=== PATIENT | male | born 1975 | race African-American/Black ===

== ENCOUNTER 2016-07-08 16:58 | Emergency (ER) | payer MEDICARE, MEDICAID ==
[2016-07-08 17:09] VITALS: BP 119/72
--- NOTE | 2016-07-08 17:33 | ER Document Report ---
ED Medical Screen (RME) - General Stated Complaint: LEFT SHOULDER PAIN Time seen by provider: 17:31 Mode of Arrival: Ambulatory Information source: Patient Notes: 41-year-old male presents to ED for left shoulder pain since a week ago. States he was seen in the emergency room on Tuesday and had x-ray done at that time. States she's had pain with this shoulder since 2006 but has recently reinjured it a week ago. I have greeted and performed a rapid initial assessment of this patient. A comprehensive ED assessment and evaluation of the patient, analysis of test results and completion of medical decision making process will be conducted by an additional ED providers. TRAVEL OUTSIDE OF THE [place] IN LAST 30 DAYS: No - Related Data Allergies/Adverse Reactions: cyclobenzaprine HCl [From Flexeril] Allergy (Verified 05/07/13 16:52) ibuprofen [From Motrin] Allergy (Verified 05/07/13 16:52) tramadol [Tramadol] Allergy (Verified 05/07/13 16:52) trazodone [Trazodone] Allergy (Verified 05/07/13 16:52) Past Medical History - Past Medical History Cardiac Medical History: Reports: Hx Hypertension Pulmonary Medical History: Reports: Hx Asthma Neurological Medical History: Reports: Hx Migraine, Hx Seizures - 2001 Endocrine Medical History: Reports: Hx Diabetes Mellitus Type 2 Renal/ Medical History: Denies: Hx Peritoneal Dialysis Psychiatric Medical History: Reports: Hx Bipolar Disorder, Hx Schizophrenia - Immunizations Immunizations up to date: Yes Hx Diphtheria, Pertussis, Tetanus Vaccination: Yes Physical Exam - Vital signs Vitals: Temp Pulse Resp BP Pulse Ox 98.3 F 91 16 119/72 99 07/08/16 17:08 07/08/16 17:08 07/08/16 17:08 07/08/16 17:08 07/08/16 17:08 Course - Vital Signs Vital signs: Temp Pulse Resp BP Pulse Ox 98.3 F 91 16 119/72 99 07/08/16 17:08 07/08/16 17:08 07/08/16 17:08 07/08/16 17:08 07/08/16 17:08
[2016-07-08] MEDS ORDERED: OXYCODONE-ACETAMINOPHEN 5-325 MG TABLET PO ONE (18:31)
--- NOTE | 2016-07-08 18:41 | ER Document Report ---
HPI - HPI Patient complains to provider of: left shoulder pain Onset: Last week Onset/Duration: Persistent Quality of pain: Sharp Pain Level: 4 Context: Patient states that he has a history of chronic left shoulder pain after a fall 10 years ago. Patient states he previously had seen an orthopedic doctor 10 years ago was diagnosed with terminal nerve damage. Patient states that a week ago he was lifting an 18 reddy on a pau and the pau slipped. Patient states that he attempted to lift a drive shaft that aggravated his left shoulder pain. Patient complains of left shoulder pain but points to the left trapezius area. Patient reports that he was here recently and was given a muscle relaxant that has not helped his symptoms. Patient has an appointment early next week with his primary doctor for further evaluation. Patient states he did take his family members Percocet that did seem to help her symptoms. Associated Symptoms: Other - Left shoulder pain Exacerbated by: Movement Relieved by: Denies Similar symptoms previously: Yes Recently seen / treated by doctor: Yes - ROS ROS below otherwise negative: Yes Systems Reviewed and Negative: Yes All other systems reviewed and negative - CONSTITUTIONAL Constitutional: DENIES: Fever, Chills - CARDIOVASCULAR Cardiovascular: DENIES: Chest pain - RESPIRATORY Respiratory: DENIES: Trouble Breathing, Coughing - REPRODUCTIVE Reproductive: DENIES: : - MUSCULOSKELETAL Musculoskeletal: REPORTS: Extremity pain, Back Pain. DENIES: Neck Pain - DERM Skin Color: Normal Skin Problems: None Past Medical History - General Information source: Patient - Social History Smoking Status: Never Smoker Chew tobacco use (# tins/day): No Frequency of alcohol use: None Drug Abuse: None Occupation: none Lives with: Family Family History: Reviewed & Not Pertinent Patient has suicidal ideation: No Patient has homicidal ideation: No Pulmonary Medical History: Reports: Hx Asthma Neurological Medical History: Reports: Hx Migraine, Hx Seizures - 2001 Endocrine Medical History: Reports: Hx Diabetes Mellitus Type 2 Renal/ Medical History: Denies: Hx Peritoneal Dialysis Psychiatric Medical History: Reports: Hx Bipolar Disorder, Hx Schizophrenia Surgical Hx: Negative - Immunizations Immunizations up to date: Yes Hx Diphtheria, Pertussis, Tetanus Vaccination: Yes Vertical Provider Document - CONSTITUTIONAL Agree With Documented VS: Yes Exam Limitations: No Limitations General Appearance: WD/WN, No Apparent Distress - INFECTION CONTROL TRAVEL OUTSIDE OF THE [place] IN LAST 30 DAYS: No - HEENT HEENT: Atraumatic, Normocephalic - NECK Neck: Other - Left trapezius muscle tenderness and spasm, pain increases with extension or abduction of left shoulder.. negative: Lymphadenopathy-Left, Lymphadenopathy-Right - RESPIRATORY Respiratory: Breath Sounds Normal, No Respiratory Distress, Chest Non-Tender O2 Sat by Pulse Oximetry: 99 - CARDIOVASCULAR Cardiovascular: Regular Rate, Regular Rhythm, No Murmur Pulses: Normal: Radial - BACK Back: Abnormal Inspection - Left trapezius muscle tenderness and spasm. negative: CVA Tenderness-Right, CVA Tenderness-Left - MUSCULOSKELETAL/EXTREMETIES Musculoskeletal/Extremeties: MAEW, Tender - Decreased range of motion to left shoulder due to increased pain to left trapezius muscle. - NEURO Level of Consciousness: Awake, Alert, Appropriate Motor/Sensory: No Motor Deficit, No Sensory Deficit Notes: Normal strength and muscle tone to left upper extremity - DERM Integumentary: Warm, Dry, No Rash Course - Re-evaluation Re-evalutation: 07/08/16 18:[address] Dent regarding patient presentation and management. Agrees with plan to manage symptomatically and have patient follow-up with orthopedic doctor. Discussed plan of care with patient, patient verbalized understanding and agrees. Patient encouraged to continue range of motion activities to left shoulder to prevent any long-term loss of mobility or function - Vital Signs Vital signs: Temp Pulse Resp BP Pulse Ox 98.3 F 91 16 119/72 99 07/08/16 17:08 07/08/16 17:08 07/08/16 17:08 07/08/16 17:08 07/08/16 17:08 - Diagnostic Test Radiology reviewed: Reports reviewed - Reviewed the radiology report from previous ER visit Discharge - Discharge Clinical Impression: Trapezius muscle spasm, Muscle strain Condition: Stable Disposition: HOME, SELF-CARE Instructions: Muscle Strain ([facility]), Warm Packs ([facility]), Oral Narcotic Medication ( [facility]) Additional Instructions: Return immediately for any new or worsening symptoms Followup with your primary care provider, call tomorrow to make a followup appointment Follow up with orthopedic Dr. for further evaluation, call tomorrow for an appointment You may use [id number] Lidoderm patches (ex: salonpas lidocaine patches) Practice gentle range of motion activities to left upper extremity Prescriptions: Oxycodone HCl/Acetaminophen [Percocet 5-325 mg Tablet] 1 tab PO ASDIR PRN #15 tablet PRN Reason: Referrals: KISHOR OLIVA DO [Primary Care Provider] - Follow up tomorrow [facility] [Provider Group] - Follow up tomorrow
== END 2016-07-08 18:56 | disposition home or self-care (01) ==
LOC: ER 16:58
DX: S46.912A Strain of unspecified muscle, fascia and tendon at shoulder and upper arm level, left arm, initial encounter (principal); M25.512 Pain in left shoulder; M62.838 Other muscle spasm; E11.9 Type 2 diabetes mellitus without complications; X50.0XXA Overexertion from strenuous movement or load, initial encounter
CPT/HCPCS: 99283; A9270

== ENCOUNTER 2016-07-16 23:16 | Emergency (ER) | payer MEDICARE, MEDICAID ==
--- NOTE | 2016-07-17 00:36 | ER Document Report ---
ED Medical Screen (RME) - General Stated Complaint: LEFT SHOULDER PAIN Notes: 41 year old male with ongoing pain in his left shoulder, had an MRI 2 weeks ago reportedly, has a follow up with Orthopedics next Month ([facility]), states they told him to come here for pain. Had re-injury to old injury 2 weeks ago. States he is awaiting a nerve test before any surgical plans. TRAVEL OUTSIDE OF THE [place] IN LAST 30 DAYS: No - Related Data Allergies/Adverse Reactions: cyclobenzaprine HCl [From Flexeril] Allergy (Verified 07/08/16 17:32) ibuprofen [From Motrin] Allergy (Verified 07/08/16 17:32) tramadol [Tramadol] Allergy (Verified 07/08/16 17:32) trazodone [Trazodone] Allergy (Verified 07/08/16 17:32) Past Medical History - Past Medical History Cardiac Medical History: Reports: Hx Hypertension Pulmonary Medical History: Reports: Hx Asthma Neurological Medical History: Reports: Hx Migraine, Hx Seizures - 2001 Endocrine Medical History: Reports: Hx Diabetes Mellitus Type 2 Renal/ Medical History: Denies: Hx Peritoneal Dialysis Psychiatric Medical History: Reports: Hx Bipolar Disorder, Hx Schizophrenia - Immunizations Immunizations up to date: Yes Hx Diphtheria, Pertussis, Tetanus Vaccination: Yes Physical Exam - Vital signs Vitals: Temp Pulse Resp BP Pulse Ox 98.1 F 92 20 128/75 H 99 07/16/16 23:21 07/16/16 23:21 07/16/16 23:21 07/16/16 23:21 07/16/16 23:21 - General General appearance: Appears well In distress: None Course - Vital Signs Vital signs: Temp Pulse Resp BP Pulse Ox 98.1 F 92 20 128/75 H 99 07/16/16 23:21 07/16/16 23:21 07/16/16 23:21 07/16/16 23:21 07/16/16 23:21
--- NOTE | 2016-07-17 01:40 | ER Document Report ---
HPI - HPI Patient complains to provider of: left shoulder pain Pain Level: 4 Context: Patient is a 41 year old male with ongoing pain in his left shoulder, had an MRI 2 weeks ago reportedly, has a follow up with Orthopedics next Month ([facility]), states they told him to come here for pain. Had re- injury to old injury about 2 weeks ago. States he is awaiting a nerve test before any surgical plans. - REPRODUCTIVE Reproductive: DENIES: : - DERM Skin Color: Normal Past Medical History - General Information source: Patient - Social History Smoking Status: Current Every Day Smoker Chew tobacco use (# tins/day): No Frequency of alcohol use: None Drug Abuse: None Family History: Reviewed & Not Pertinent Patient has suicidal ideation: No Patient has homicidal ideation: No - Past Medical History Cardiac Medical History: Reports: Hx Hypertension Pulmonary Medical History: Reports: Hx Asthma Neurological Medical History: Reports: Hx Migraine, Hx Seizures - 2001 Endocrine Medical History: Reports: Hx Diabetes Mellitus Type 2 Renal/ Medical History: Denies: Hx Peritoneal Dialysis Psychiatric Medical History: Reports: Hx Bipolar Disorder, Hx Schizophrenia - Immunizations Immunizations up to date: Yes Hx Diphtheria, Pertussis, Tetanus Vaccination: Yes Vertical Provider Document - CONSTITUTIONAL General Appearance: WD/WN, No Apparent Distress - INFECTION CONTROL TRAVEL OUTSIDE OF THE [place] IN LAST 30 DAYS: No - HEENT HEENT: Atraumatic, Normal ENT Exam, Normocephalic - NECK Neck: Normal Inspection - RESPIRATORY Respiratory: Breath Sounds Normal, No Respiratory Distress O2 Sat by Pulse Oximetry: 99 - CARDIOVASCULAR Cardiovascular: Regular Rate, Regular Rhythm - GI/ABDOMEN Gastrointestinal: Abdomen Soft, Abdomen Non-Tender - BACK Back: Normal Inspection - MUSCULOSKELETAL/EXTREMETIES Musculoskeletal/Extremeties: Tender - Patient complains regardless of where I touch his left shoulder whether it be over the proximal humerus, over the posterior or anterior aspect. No swelling, no abnormal erythema, patient can move the arm but does so reluctantly. Normal distal strength and sensation. Normal neck examination. - NEURO Level of Consciousness: Awake, Alert Motor/Sensory: No Motor Deficit, No Sensory Deficit - DERM Integumentary: Warm, Dry, No Rash Course - Re-evaluation Re-evalutation: Patient has been to the emergency department multiple times for the same shoulder, he has chronic shoulder pain, no new injuries, patient is well- appearing, no concerning abnormalities noted on examination. I did agree to give patient a dose of pain medication tonight, however after informed him that the emergency department does not treat chronic pain conditions, referred him to pain management, instructed him to follow-up with orthopedics as planned for additional management. I did offer him a sling which he wanted. Advised him to return for any concerning symptoms such as swelling, numbness, etc. Patient states understanding. - Vital Signs Vital signs: Temp Pulse Resp BP Pulse Ox 98.1 F 92 20 128/75 H 99 07/16/16 23:21 07/16/16 23:21 07/16/16 23:21 07/16/16 23:21 07/16/16 23:21 Procedures - Immobilization left shoulder Pre-Proc Neuro Vasc Exam: Normal Immobilizer type: Sling Performed by: RN Post-Proc Neuro Vasc Exam: Normal Alignment checked and good: Yes Discharge - Discharge Clinical Impression: Chronic left shoulder pain Condition: Stable Disposition: HOME, SELF-CARE Additional Instructions: Wear the sling for comfort if needed, remember to take your shoulder out several times a day to perform range of motion movements to avoid getting a frozen shoulder. Follow-up with pain management referral for additional treatments. Follow-up with orthopedics for additional management. Return to the emergency department for concerning symptoms including swelling to the area, loss of sensation, fever, or any other concerning symptoms. Referrals: [facility] [Provider Group] - Follow up as needed
[2016-07-17] MEDS ORDERED: OXYCODONE-ACETAMINOPHEN 5-325 MG TABLET PO ONE (01:53)
[2016-07-17] MEDS ORDERED: HYDROCODONE/ACETAMINOPHEN 5-325 MG 6 TAB/DSPK PO PRN (01:54)
[2016-07-17 02:15] VITALS: BP 141/78
== END 2016-07-17 02:12 | disposition home or self-care (01) ==
LOC: ER 23:16
DX: M25.512 Pain in left shoulder (principal); F17.200 Nicotine dependence, unspecified, uncomplicated; G89.29 Other chronic pain
CPT/HCPCS: 99283; A9270 ×2

== ENCOUNTER 2016-07-24 17:29 | Emergency (ER) | payer MEDICARE, MEDICAID ==
[2016-07-24 17:34] VITALS: BP 134/76
--- NOTE | 2016-07-24 18:25 | ER Document Report ---
ED Extremity Problem, Lower - General Chief Complaint: Leg Injury Stated Complaint: RIGHT LEG INJURY Time seen by provider: 18:22 Mode of Arrival: Wheelchair Information source: Patient Notes: 41-year-old male presents to ED for right hip and leg pain after playing football with his family. He states he fell while playing football. TRAVEL OUTSIDE OF THE [place] IN LAST 30 DAYS: No - HPI Patient complains to provider of: Injury, Pain Location: Hip Occurred: Just prior to arrival Where: Home, Outdoors, Sports Onset/Duration: Sudden Quality of pain: Sharp Severity: Severe Context: Fell Recent injury: Possibly Associated symptoms: Painful ambulation Exacerbated by: Hanging down, Movement, Walking Relieved by: Elevation, Ice, Rest - Related Data Allergies/Adverse Reactions: cyclobenzaprine HCl [From Flexeril] Allergy (Verified 07/24/16 17:32) ibuprofen [From Motrin] Allergy (Verified 07/24/16 17:32) tramadol [Tramadol] Allergy (Verified 07/24/16 17:32) trazodone [Trazodone] Allergy (Verified 07/24/16 17:32) Past Medical History - General Information source: Patient - Social History Smoking Status: Current Every Day Smoker Cigarette use (# per day): Yes - half pack per day Chew tobacco use (# tins/day): Yes Smoking Education Provided: Yes - less than 2 minutes Frequency of alcohol use: None Drug Abuse: None Occupation: none Lives with: Friend Family History: Arthritis, CAD, CVA, DM, Hyperlipidemia, Hypertension Patient has suicidal ideation: No Patient has homicidal ideation: No - Past Medical History Cardiac Medical History: Reports: Hx Hypertension Pulmonary Medical History: Reports: Hx Asthma Neurological Medical History: Reports: Hx Migraine, Hx Seizures - 2001 Endocrine Medical History: Reports: Hx Diabetes Mellitus Type 2 Renal/ Medical History: Reports: None Malignancy Medical History: Reports None GI Medical History: Reports: None Musculoskeltal Medical History: Reports None Skin Medical History: Reports None Psychiatric Medical History: Reports: Hx Bipolar Disorder, Hx Schizophrenia Traumatic Medical History: Reports: None Infectious Medical History: Reports: None Surgical Hx: Negative Past Surgical History: Reports: None - Immunizations Immunizations up to date: Yes Hx Diphtheria, Pertussis, Tetanus Vaccination: Yes Review of Systems - Review of Systems Constitutional: No symptoms reported EENT: No symptoms reported Cardiovascular: No symptoms reported Respiratory: No symptoms reported Gastrointestinal: No symptoms reported Genitourinary: No symptoms reported Male Genitourinary: No symptoms reported Musculoskeletal: Other - Right hip pain Skin: No symptoms reported Hematologic/Lymphatic: No symptoms reported Neurological/Psychological: No symptoms reported Physical Exam - Vital signs Vitals: Temp Pulse Resp BP Pulse Ox 98.6 F 104 H 16 134/76 H 100 07/24/16 17:30 07/24/16 17:30 07/24/16 17:30 07/24/16 17:30 07/24/16 17:30 Interpretation: Normal - General General appearance: Appears well, Alert - HEENT Head: Normocephalic, Atraumatic Eyes: Normal Pupils: PERRL - Respiratory Respiratory status: No respiratory distress Chest status: Nontender Breath sounds: Normal Chest palpation: Normal - Cardiovascular Rhythm: Regular Heart sounds: Normal auscultation Murmur: No - Abdominal Inspection: Normal Distension: No distension Bowel sounds: Normal Tenderness: Nontender Organomegaly: No organomegaly - Back Back: Normal, Nontender - Extremities General upper extremity: Normal inspection, Nontender, Normal color, Normal ROM , Normal temperature General lower extremity: Normal inspection, Normal color, Normal temperature. No: Kehinde's sign Hip: Tender, Pain with ROM Thigh: Tender - Neurological Neuro grossly intact: Yes Cognition: Normal Orientation: AAOx4 Cornelia Coma Scale Eye Opening: Spontaneous Cornelia Coma Scale Verbal: Oriented Serenity Coma Scale Motor: Obeys Commands Serenity Coma Scale Total: 15 Speech: Normal Motor strength normal: LUE, RUE, LLE, RLE Sensory: Normal - Psychological Associated symptoms: Normal affect, Normal mood - Skin Skin Temperature: Warm Skin Moisture: Dry Skin Color: Normal Course - Re-evaluation Re-evalutation: 07/24/16 19:41 Chest x-ray with patient we'll discharge home with ibuprofen and instructed to follow-up with his primary doctor. - Vital Signs Vital signs: Temp Pulse Resp BP Pulse Ox 98.6 F 104 H 16 134/76 H 100 07/24/16 17:33 07/24/16 17:33 07/24/16 17:33 07/24/16 17:33 07/24/16 17:33 - Diagnostic Test Radiology reviewed: Image reviewed, Reports reviewed Discharge - Discharge Clinical Impression: Hip pain Qualifiers: Laterality: right Qualified Code(s): M25.551 - Pain in right hip Condition: Stable Disposition: HOME, SELF-CARE Instructions: Range of Motion Exercises ([facility]), Family Physicians / Practices Additional Instructions: You were seen today for right hip pain. Your x-rays are negative a written report of your x-rays are given to you to take to your primary doctor. Acetaminophen Acetaminophen may be taken for pain relief or fever control. It's much safer than aspirin, offering a wider range of "safe" dosages. It is safe during . Some brand names are Tylenol, Panadol, Datril, Anacin 3, Tempra, and Liquiprin. Acetaminophen can be repeated every four hours. The following are maximum recommended dosages: WEIGHT Dose Drops Elixir Chewable( 80mg) (LBS.) drprs=droppers tsp=teaspoon 6 40 mg .4 ml (1/2) 6-11 80 mg .8 ml (full) 1/2 tsp 1 tab 12-16 120 mg 1 1/2 drprs 3/4 tsp 1 1/2 tabs 17-23 160 mg 2 drprs 1 tsp 2 tabs 24-30 240 mg 3 drprs 1 1/2 tsp 3 tabs 30-35 320 mg 2 tsp 4 tabs 36-41 360 mg 2 1/4 tsp 4 1 /2 tabs 42-47 400 mg 2 1/2 tsp 5 tabs 48-53 480 mg 3 tsp 6 tabs 54-59 520 mg 3 1/4 tsp 6 1 /2 tabs 60-64 560 mg 3 1/2 tsp 7 tabs 65-70 600 mg 3 3/4 tsp 7 1 /2 tabs 71-76 640 mg 4 tsp 8 tabs 77-82 720 mg 4 1/2 tsp 9 tabs 83-88 800 mg 5 tsp 10 tabs >89 pounds or adults 650 mg to 900 mg Acetaminophen can be repeated every four hours. Maximum daily dose not to exceed 4000 mg. These maximum recommended dosages are slightly higher than the dosages written on the product container, but these dosages are very safe and well below the toxic dosage for acetaminophen. ICE & ELEVATION: Apply ice packs frequently against the painful area. Many different schedules are recommended, such as "20 minutes on, 20 minutes off" or "one hour ice, two hours rest." If you need to work, you may need to go longer between ice treatments. You should plan to have the area ice packed AT LEAST one- fourth of the time. The ice should be applied over the wrap, tape, or splint, or over a layer of cloth -- not directly against the skin. Some ice bags have a built-in cloth and can be put directly on the skin. Your injured part should be elevated as much as possible over the next 48 hours. Try to keep the injury above the level of the heart. Avoid use of the injured area. Elevation and rest will decrease the swelling. FOLLOW-UP CARE: If you have been referred to a physician for follow-up care, call the physician s office for an appointment as you were instructed or within the next two days. If you experience worsening or a significant change in your symptoms, notify the physician immediately or return to the Emergency Department at any time for re-evaluation. Prescriptions: Oxycodone HCl/Acetaminophen [Percocet 5-325 mg Tablet] 1 tab PO BIDP PRN #8 tablet PRN Reason: Forms: Elevated Blood Pressure, Smoking Cessation Education Referrals: TEO ISBELL MD [ACTIVE STAFF] - Follow up as needed
== END 2016-07-24 20:30 | disposition home or self-care (01) ==
LOC: ER 17:29
DX: M25.551 Pain in right hip (principal); M79.604 Pain in right leg; W19.XXXA Unspecified fall, initial encounter; Y93.61 Activity, american tackle football; Y92.009 Unspecified place in unspecified non-institutional (private) residence as the place of occurrence of the external cause; E11.9 Type 2 diabetes mellitus without complications; I10 Essential (primary) hypertension; J45.909 Unspecified asthma, uncomplicated; F17.210 Nicotine dependence, cigarettes, uncomplicated; Z71.6 Tobacco abuse counseling; Z88.8 Allergy status to other drugs, medicaments and biological substances; Z88.6 Allergy status to analgesic agent; Z88.5 Allergy status to narcotic agent
CPT/HCPCS: 99283

== ENCOUNTER 2017-06-10 16:45 | Emergency (ER) | payer MEDICARE, MEDICAID ==
[2017-06-10] MEDS ORDERED: ACETAMINOPHEN 325 MG TABLET PO ONE (17:51)
[2017-06-10] MEDS ORDERED: OSELTAMIVIR PHOSPHATE 75 MG CAPSULE PO ONE (17:51)
--- NOTE | 2017-06-10 17:55 | ER Document Report ---
ED Flu Like - General Chief Complaint: Pain All Over Stated Complaint: BODY ACHES Time Seen by Provider: 06/10/17 17:30 Mode of Arrival: Ambulatory Information source: Patient Notes: 42-year-old male presented ED for complaint of fever chills body aches for 2 days. States at nighttime he sweats all over. States had cough congestion and headache. Patient is alert oriented able speak in full sentences in no acute distress during exam. TRAVEL OUTSIDE OF THE [place] IN LAST 30 DAYS: No - HPI Onset: Other - 2 days Timing/Duration: Intermittent Quality of pain: Achy Severity: Severe Pain Level: 5 CO exposure: No Associated symptoms: Body/muscle aches, Chills, Nonproductive cough, Fever, Headache, Rhinnorhea, Sinus pain/drainage Similar symptoms previously: Yes Recently seen / treated by doctor: No - Related Data Allergies/Adverse Reactions: cyclobenzaprine HCl [From Flexeril] Allergy (Verified 06/10/17 16:46) ibuprofen [From Motrin] Allergy (Verified 06/10/17 16:46) tramadol [Tramadol] Allergy (Verified 06/10/17 16:46) trazodone [Trazodone] Allergy (Verified 06/10/17 16:46) Past Medical History - General Information source: Patient - Social History Smoking Status: Current Every Day Smoker Cigarette use (# per day): Yes - Pack per day Chew tobacco use (# tins/day): No Smoking Education Provided: Yes - 4 minutes Frequency of alcohol use: None Drug Abuse: None Occupation: None Lives with: Friend Family History: Arthritis, CAD, CVA, DM, Hyperlipidemia, Hypertension. denies: COPD, Malignancy, Thyroid Disfunction Patient has suicidal ideation: No Patient has homicidal ideation: No - Past Medical History Cardiac Medical History: Reports: Hx Hypertension Pulmonary Medical History: Reports: Hx Asthma EENT Medical History: Reports: None Neurological Medical History: Reports: Hx Migraine, Hx Seizures - 2001 Endocrine Medical History: Reports: None Renal/ Medical History: Reports: None Malignancy Medical History: Reports None GI Medical History: Reports: None Musculoskeltal Medical History: Reports None Skin Medical History: Reports None Psychiatric Medical History: Reports: Hx Bipolar Disorder, Hx Schizophrenia Traumatic Medical History: Reports: None Infectious Medical History: Reports: None Past Surgical History: Reports: Other - Cyst removed from the ear - Immunizations Immunizations up to date: Yes Hx Diphtheria, Pertussis, Tetanus Vaccination: Yes Review of Systems - Review of Systems Notes: Constitutional: [PRESENT: as per HPI. ABSENT: weight gain, weight loss] patient complains of fever, chills, congestion, headaches, with body sweats after taken Tylenol or Motrin Eyes: [ABSENT: visual disturbances] Ears: [ABSENT: hearing changes] Nasopharyngeal: Nasal congestion/drainage, postnasal drip, Cardiovascular: [ABSENT: chest pain, dyspnea on exertion, edema, orthropnea, palpitations] Respiratory: [ABSENT:hemoptysis] nonproductive cough no wheezing no rales no rhonchi. Gastrointestinal: [ABSENT: abdominal pain, constipation, diarrhea, hematemesis, hematochezia, nausea, vomiting] Genitourinary: [ABSENT: dysuria, hematuria] Musculoskeletal: Has body aches. Integumentary: [ABSENT: rash, wounds] Neurological: [ABSENT: abnormal gait, abnormal speech, confusion, dizziness, focal weakness, syncope] Psychiatric: [ABSENT: anxiety, depression, homicidal ideation, suicidal ideation ] Endocrine: [ABSENT: cold intolerance, heat intolerance, menstrual abnormalities , polydipsia, polyuria] Hematologic/Lymphatic: [ABSENT: easy bleeding, easy bruising, lymphadenopathy] Physical Exam - Vital signs Vitals: Temp Pulse Resp BP Pulse Ox 99.3 F 107 H 24 H 145/79 H 97 06/10/17 16:49 06/10/17 16:49 06/10/17 16:49 06/10/17 16:49 06/10/17 16:49 - Notes Notes: PHYSICAL EXAMINATION: GENERAL: 42-year-old male well-appearing, well-nourished and in no acute distress. HEAD: Atraumatic, normocephalic. EYES: Pupils equal round and reactive to light, extraocular movements intact, sclera anicteric, conjunctiva are normal. ENT: With swollen nasal turbinates with purulent drainage, oropharynx with post nasal drip and no exudates. Moist mucous membranes. NECK: Normal range of motion, supple without lymphadenopathy LUNGS: Breath sounds clear to auscultation bilaterally and equal. No wheezes rales or rhonchi. HEART: Regular rate and rhythm without murmurs ABDOMEN: Soft, nontender, nondistended abdomen. No guarding, no rebound. No masses appreciated. Musculoskeletal: Normal range of motion, no pitting or edema. No cyanosis. No tenderness at this time but states that he does have body aches all over NEUROLOGICAL: Cranial nerves grossly intact. Normal speech, normal gait. Normal sensory, motor exams PSYCH: Normal mood, normal affect. SKIN: Warm, Dry, normal turgor, no rashes or lesions noted. Course - Re-evaluation Re-evalutation: 06/11/17 01:01 Patient presented to ED with flulike symptoms and assessment consistent with upper respiratory viral infection with possible flu. Patient requested that he receive Tamiflu since his symptoms have been less than 48 hours. Prescription for Tamiflu was provided after he was treated with Tamiflu in the emergency room. - Vital Signs Vital signs: Temp Pulse Resp BP Pulse Ox 99.0 F 93 24 H 144/82 H 96 06/10/17 18:07 06/10/17 18:07 06/10/17 16:49 06/10/17 18:07 06/10/17 18:07 Discharge - Discharge Clinical Impression: Flu-like symptoms Condition: Stable Disposition: HOME, SELF-CARE Additional Instructions: INFLUENZA: The physician feels that you have influenza -- the "flu". Influenza is an infection caused by a virus. Symptoms include generalized aching, fever, headache, dry cough, and fatigue. Some patients with the flu also have nausea, vomiting, and diarrhea. The fever and aches usually last two to four days, with the cough persisting another one to two weeks. Treatment of the flu, for the most part, is simply treatment of symptoms. Rest, drink plenty of fluids, and use acetaminophen for fever and aches. Do not take aspirin. There is an anti-viral medication, called Tamiflu, which may help in "type A" flu, but it's not helpful in every case of flu, and only works if started within the first 24 - 48 hours of the start of symptoms. The physician will determine whether this medication can help you. To prevent spread of the virus, use good handwashing. Shared toys should be cleaned with disinfectant. Clean the toilets, sinks, and counter surfaces in bathrooms. Launder clothing in hot water. What are conditions that should receive medical attention? The development of difficulty breathing. Lip color changes to blue or purple. Persistent vomiting and unable to keep liquids down with signs of dehydration such as: dizziness when standing, unable to urinate, or if child/infant is crying no tears are noticed. Is less responsive than normal or becomes confused. How do I decrease the spread of flu in my home? Taking care of the sick patient at home: Keep the sick person in a room separate from the common areas of the house. Keep the "sickroom" door closed. If the person with the flu needs to leave the home, they should cover their nose/mouth when coughing or sneezing and wear a disposable (surgical) mask if available. These masks may be available at your local pharmacy, medical supply and hardware store. If the sick person is in common areas of the house, have them wear a surgical mask. If possible, have the sick person use a separate bathroom that should be cleaned daily with a household disinfectant. If you are the caregiver: Avoid being face to face with the sick adult person as much as possible. Try to stay at least 6 feet away and wear a disposable surgical mask when possible. When holding small children who are sick, place their chin on your shoulder so that they will not cough in your face. Wash your hands after you touch the sick person or handle their tissues and laundry. Wear a mask if you leave home, as you may be infected from taking care of someone and not know it yet. Watch yourself and others in the home for flu symptoms and contact your doctor if symptoms occur. NOTE: Antiviral medication used to reduce the symptoms of the flu works only if taken within 48 hours, and best within 24 hours of symptom onset. Household Cleaning, laundry and waste disposal: Tissues and other disposable items used by the sick person should be thrown away in the trash. Wash your hands after touching these used items. No special waste disposal is required. Keep surfaces (especially bedside tables, bathroom surfaces, and toys for children) clean by wiping them down with a safe household disinfectant according to the directions on the product label. Per Center for Disease Control advice, most people will not receive testing to confirm flu. Also based on the person's health history and onset of symptoms, not all patients will receive prescriptions for antiviral medications. If you have questions related to this, please ask your healthcare provider. For more information, you can call the Centers for Disease Control and Prevention (CDC) Hotline at 9-506-HSF-INFO This line is available in Frisian and Divehi, 24 hours a day, 7 days a week. Or www.[employer] or www.cdc.gov Flu-Like Illness Home Instructions: The influenza virus infection can cause a wide rage of symptoms, including: Fever, cough, sore throat, body aches, headaches, chills, fatigue, with some patients reporting diarrhea and vomiting Like seasonal influenza A, H1N1 ("swine flu")in humans can vary in severity from mild to severe Severe illness with pneumonia, respiratory failure and even is possible Certain groups might be more likely to develop a severe illness from H1N1 infection. Sometimes bacterial infections may occur at the same time as or after infection with influenza viruses and lead to pneumonias, ear infections, or sinus infections. How Flu Spreads The main way that influenza viruses spread is through respiratory droplets of coughs and sneezes. This can happen when someone with the infection coughs or sneezes and the particles fly through the air and land on other people and surfaces. If the person covers their mouth and nose with their hand but does not wash their hands immediately, then these germs are passed onto the next object that they touch. People with Influenza A or suspected H1N1 (swine flu) who are cared for at home should: Check with their doctor about any special care that they might need if they are or have a health condition such as diabetes, heart disease, asthma or emphysema. Also, limit caregiver to one (if possible). women or those with chronic health conditions should not take care of the flu patient unless necessary. Check with their doctor about whether or not medications are needed that may lessen the symptoms of the flu. Stay at home until 24 hours fever free without the use of fever reducing medication. Get plenty of rest and avoid other healthy people in your home. Drink plenty of clear liquids to keep from getting dehydrated. Take medications like Tylenol (Acetaminophen), Advil/Motrin/Nuprin ( Ibuprofen) or Aleve (Naproxen) for fevers and aches. All children under the age of 18 years of age should not take aspirin or products containing aspirin (e.g. Pepto Bismol), as this can cause a rare serious illness called Spencer Syndrome. Over the counter medications for flu and colds may help, but it is very important to follow the package directions. Remember that the medicine may help the symptoms, but it will not help prevent others from getting sick if they are around you. Cover coughs and sneezes using your bent arm. Clean hands with soap and water or an alcohol-based hand rub often, especially after using tissues to cough or sneeze. Encourage hand washing frequently for all people living in the home! The sick person should not have visitors other than caregivers. Encourage concerned loved ones to call instead of visit. Avoid close contact with others-do not go to work or school while sick. USE OF ACETAMINOPHEN (Tylenol): Acetaminophen may be taken for pain relief or fever control. It's much safer than aspirin, offering a wider range of "safe" dosages. It is safe during . Some brand names are Tylenol, Panadol, Datril, Anacin 3, Tempra, and Liquiprin. Acetaminophen can be repeated every four hours. The following are maximum recommended dosages: WEIGHT Dose Drops Elixir Chewable( 80mg) (LBS.) drprs=droppers tsp=teaspoon 6 40 mg 0.4 ml (1/2) 6-11 80 mg 0.8 ml (full) tsp 1 tab 12-16 120 mg 1 1/2 drprs 3/4 tsp 1 1/2 tabs 17-23 160 mg 2 drprs 1 tsp 2 tabs 24-30 240 mg 3 drprs 1 1/2 tsp 3 tabs 30-35 320 mg 2 tsp 4 tabs 36-41 360 mg 2 1/4 tsp 4 1/2 tabs 42-47 400 mg 2 1/2 tsp 5 tabs 48-53 480 mg 3 tsp 6 tabs 54-59 520 mg 3 1/4 tsp 6 1/2 tabs 60-64 560 mg 3 1/2 tsp 7 tabs 65-70 600 mg 3 3/4 tsp 7 1/2 tabs 71-76 640 mg 4 tsp 8 tabs 77-82 720 mg 4 1/2 tsp 9 tabs 83-88 800 mg 5 tsp 10 tabs >89 pounds or adults 650 mg to 900 mg Acetaminophen can be repeated every four hours. Maximum dose not to exceed 4000 mg a day. These maximum recommended dosages are slightly higher than the dosages written on the product container, but these dosages are very safe and below the toxic dosage for acetaminophen. FOLLOW-UP CARE: If you have been referred to a physician for follow-up care, call the physician s office for an appointment as you were instructed or within the next two days. If you experience worsening or a significant change in your symptoms, notify the physician immediately or return to the Emergency Department at any time for re-evaluation. Prescriptions: Oseltamivir Phosphate [Tamiflu 75 mg Capsule] 75 mg PO BID #10 capsule Forms: Elevated Blood Pressure, Smoking Cessation Education, Return to Work Referrals: [facility] [Provider Group] - Follow up as needed
[2017-06-10 18:14] VITALS: BP 144/82
== END 2017-06-10 18:14 | disposition home or self-care (01) ==
LOC: ER 16:45
DX: R50.9 Fever, unspecified (principal); M79.1 Myalgia; R05 Cough; R09.81 Nasal congestion; R51 Headache; F17.210 Nicotine dependence, cigarettes, uncomplicated
CPT/HCPCS: 99406; 99283; A9270 ×2; J3490

== ENCOUNTER 2018-03-02 20:13 | Emergency (ER) | payer MEDICARE, MEDICAID ==
[2018-03-02] MEDS ORDERED: DEXAMETHASONE SOD PHOS INJ 10 MG/1 ML VIAL IV ONE (21:22)
[2018-03-02] MEDS ORDERED: CIPROFLOXACIN HCL/DEXAMETH OTIC DROP 7.5 ML AD ONE (21:27)
[2018-03-02] MEDS ORDERED: ACETAMINOPHEN SUSP 160 MG/5 ML ORAL SYRING PO ONE (21:27)
--- NOTE | 2018-03-02 21:27 | ER Document Report ---
ED ENT <LUCIEN LEW - Last Filed: 03/03/18 00:43> - General Mode of Arrival: Ambulatory Information source: Patient TRAVEL OUTSIDE OF THE [place] IN LAST 30 DAYS: No - HPI Patient complains to provider of: Ear problem, Throat problem Onset: Other - 2 days Onset/Duration: Gradual, Worse Quality of pain: Sharp, Stabbing Severity: Severe Pain Level: 5 Context: Recent Illness Location of pain: Ears - Right ear pain, Throat - Very sore throat Associated symptoms: Chills, Cough, Ear pain, Fever, Sore throat, Swollen glands Similar symptoms previously: No Recently seen / treated by doctor: No <DIAMOND ARELLANO - Last Filed: 03/03/18 02:08> - General Chief Complaint: Ear Pain Stated Complaint: EAR/THROAT SWOLLEN Time Seen by Provider: 03/02/18 20:45 Notes: 43-year-old male presented to ED for complaint of right ear pain as well as severe throat pain where he is having trouble swallowing. Patient is able to answer questions but states it is very painful to answer the questions. He states he is having trouble swallowing any food or water. He is spitting in a bag. He does speak in a low voice. (DIAMOND ARELLANO) - Related Data Allergies/Adverse Reactions: cyclobenzaprine HCl [From Flexeril] Allergy (Verified 06/10/17 16:46) ibuprofen [From Motrin] Allergy (Verified 06/10/17 16:46) tramadol [Tramadol] Allergy (Verified 06/10/17 16:46) trazodone [Trazodone] Allergy (Verified 06/10/17 16:46) Past Medical History - General Information source: Patient - Social History Smoking Status: Current Every Day Smoker Cigarette use (# per day): Yes - ppd Chew tobacco use (# tins/day): No Smoking Education Provided: Yes - 4 min Frequency of alcohol use: None Drug Abuse: None Lives with: Friend Family History: Arthritis, CAD, CVA, DM, Hyperlipidemia, Hypertension. denies: COPD, Malignancy, Thyroid Disfunction Patient has suicidal ideation: No Patient has homicidal ideation: No - Past Medical History Cardiac Medical History: Reports: Hx Hypertension Pulmonary Medical History: Reports: Hx Asthma EENT Medical History: Reports: None Neurological Medical History: Reports: Hx Migraine, Hx Seizures - 2001 Endocrine Medical History: Reports: Hx Diabetes Mellitus Type 2 Renal/ Medical History: Reports: None Malignancy Medical History: Reports None GI Medical History: Reports: None Musculoskeletal Medical History: Reports None Skin Medical History: Reports None Psychiatric Medical History: Reports: Hx Bipolar Disorder, Hx Schizophrenia Traumatic Medical History: Reports: None Infectious Medical History: Reports: None Past Surgical History: Reports: Other - Cyst removed from the ear - Immunizations Immunizations up to date: Yes Hx Diphtheria, Pertussis, Tetanus Vaccination: Yes <DIAMOND ARELLANO - Last Filed: 03/03/18 02:08> Review of Systems <LUCIEN LEW - Last Filed: 03/03/18 00:43> <DIAMOND ARELLANO - Last Filed: 03/03/18 02:08> - Review of Systems Notes: REVIEW OF SYSTEMS: CONSTITUTIONAL : Planes of fever, chills, or sweats and recent illness EENT: Complains of right ear pain, sore throat throat, difficulty swallowing. Denies nasal or sinus congestion or discharge. CARDIOVASCULAR: Denies chest pain. Denies palpitations or racing or irregular heart beat. Denies ankle edema. RESPIRATORY: Denies cough, cold, or chest congestion. Denies shortness of breath, difficulty breathing, or wheezing. GASTROINTESTINAL: Denies abdominal pain or distention. Denies nausea, vomiting , or diarrhea. Denies blood in vomitus, stools, or per rectum. Denies black, tarry stools. Denies constipation. MUSCULOSKELETAL: Denies back or neck pain or stiffness. Denies joint pain or swelling. SKIN: Denies rash, lesions or sores. LYMPHATIC: Enlarged cervical lymph nodes PSYCHIATRIC: Denies anxiety or stress. Denies depression, suicidal ideation, or homicidal ideation. ALL OTHER SYSTEMS REVIEWED AND NEGATIVE. Dictation was performed using [employer] voice recognition software PHYSICAL EXAMINATION: GENERAL: Well-appearing, states his throat is very sore and he is having trouble swallowing. HEAD: Atraumatic has swollen lymph nodes more on the right EYES: Pupils equal round and reactive to light, extraocular movements intact, sclera anicteric, conjunctiva are normal. ENT: Nares patent, enlarged tonsils, more so to the right with fullness to the soft palate. Moist mucous membranes. NECK: Normal range of motion, supple with bilateral lymphadenopathy. LUNGS: Breath sounds clear to auscultation bilaterally and equal. No wheezes rales or rhonchi. HEART: Regular rate and rhythm without murmurs PSYCH: Normal mood, normal affect. SKIN: Warm, Dry, normal turgor, no rashes or lesions noted. (DIAMOND ARELLANO) - Vital signs Vitals: Temp Pulse Resp BP Pulse Ox 101.2 F H 104 H 18 150/85 H 96 03/02/18 20:20 03/02/18 20:20 03/02/18 20:20 03/02/18 20:20 03/02/18 20:20 Course - Laboratory Result Diagrams: 03/02/18 21:35 03/02/18 21:35 <LUCIEN LEW - Last Filed: 03/03/18 00:43> - Laboratory Result Diagrams: 03/02/18 21:35 03/02/18 21:35 - Diagnostic Test Radiology reviewed: Image reviewed, Reports reviewed <DIAMOND ARELLANO - Last Filed: 03/03/18 02:08> - Re-evaluation Re-evalutation: 03/03/18 00:46 I saw and examined this patient in conjunction with CHRISTINE Ocampo. Patient has been having fever, throat pain and some difficulty swallowing, examination and CT scan are consistent with right-sided peritonsillar abscess, treated with incision and drainage, Augmentin, steroids. Patient will be discharged home on Augmentin, instructed on salt water gargles. Patient tolerated aspiration of peritonsillar abscess well. (LUCIEN LEW) 03/03/18 02:06 Patient had a severe sore throat when I first examined him. He was treated with steroids and labs and CT were ordered. CT returned as a peritonsillar abscess on the right. Dr. Lew was consulted for treatment of the peritonsillar abscess. Gave orders for set up of a I&D of the peritonsillar abscess. All orders were carried out and I&D was completed by Dr. Lew. Patient tolerated well he was given Augmentin in the ER and discharged home with a prescription for Augmentin. He was also given [place] dispense back for his pain. He was given a 500 cc normal saline bottle for salt water gargles at home. Patient was instructed to follow-up with primary doctor or return to the ED for any increase in pain swelling or difficulty swallowing. Patient and friend verbalized understanding and agreement with treatment plan. (DIAMOND ARELLANO) - Vital Signs Vital signs: Temp Pulse Resp BP Pulse Ox 98.1 F 86 18 133/73 H 94 03/03/18 01:14 03/03/18 01:14 03/03/18 01:14 03/03/18 01:14 03/03/18 01:14 - Laboratory Laboratory results interpreted by me: 03/02/18 21:35 WBC 13.6 H RBC 6.38 H MCV 74 L MCH 23.9 L RDW 14.8 H Absolute Neutrophils 10.3 H Procedures - Incision and Drainage right peritonsillar abscess Type: Simple, Single Anesthetic type: 2% Lidocaine - nebulized, Other - hurricaine spray Incision Method: Incision made with needle Amount/type of drainage: small amount of bloody and purulent drainage, increased with suctioning <LUCIEN LEW - Last Filed: 03/03/18 00:43> Discharge <LUCIEN LEW - Last Filed: 03/03/18 00:43> <DIAMOND ARELLANO - Last Filed: 03/03/18 02:08> - Discharge Clinical Impression: Peritonsillar abscess Right otitis externa Qualifiers: Otitis externa type: unspecified type Chronicity: acute Qualified Code(s): H60.501 - Unspecified acute noninfective otitis externa, right ear Condition: Stable Disposition: HOME, SELF-CARE Additional Instructions: Zohreh-Tonsillar Abscess You have a zohreh-tonsillar abscess, a pus-filled swelling adjacent to the tonsil. Some abscesses may be left to drain on their own, but most require opening or lancing. It may be a couple of days before the abscess is ready to gabby or to differentiate an abscess from just local tissue infection called cellulitis. An antibiotic may prevent spread of the infection and a steroid medication may reduce the swelling. Once the abscess is opened, either on its own or by lancing it, the wound will heal with surprisingly little scar. Depending on the size of an abscess, healing can take one to four weeks. If you develop fever, chills, worsening pain, or increasing swelling in the area, call the doctor or return immediately. The major risk of a zohreh- tonsillar abscess is that it may swell so much that it impinges on your airway and can lead to dangerous obstruction of your breathing. If that seems to be developing, you should seek immediate emergency re-evaluation and care. OTITIS EXTERNA: You have otitis externa -- an infection of the outer ear canal. This can be very painful. It's sometimes called "swimmer's ear," because it often occurs after prolonged water exposure. Many things, such as earwax and dirt in the ear, can contribute to it. The usual treatment is antibiotic/antiinflammatory ear drops. Occasionally , a wick will be placed in the ear to draw in the medicine. If the infection is severe, an oral antibiotic may be prescribed. Pain medication is often needed. Avoid getting water in the ear. Outer ear infections often take longer to heal than you might expect. Some tenderness and ache in the ear may persist for about two weeks. See your physician if you fail to improve as expected. Call the doctor at once if you develop fever, increasing swelling (particularly if it makes your ear "poke out"), severe headache, stiff neck, or decreased hearing. USE OF EAR DROPS: Your ear drops won't do much good if they don't get all the way in. To help the ear drops penetrate all the way to the ear drum, use the following technique. If you encounter problems of any kind, notify the physician. (1) Lay your head sideways on a pillow. (2) Place the dropper tip just barely inside the ear canal, almost touching the bottom side of the canal. The liquid is tolerated better on the bottom of the canal. (3) Squeeze out the appropriate amount of medicine, and remove the dropper. (4) Grab the back of the ear (just behind the ear canal) between your index finger and thumb. (5) Tug up, then let the ear drop back. Repeat several times. This pumps the medicine down. (6) Wait five minutes, then place a cotton ball in the ear canal to catch and hold the medicine. CIPROFLOXACIN: You have been given an antibacterial agent, ciprofloxacin (Cipro). This medicine is not related to the penicillins, sulfas, cephalosporins, or tetracyclines. It is often given to patients who are allergic to these drugs. It has been chosen for you either because other drugs are not appropriate, or because of the nature of your problem. Cipro should not be taken with antacids, as these can decrease its effectiveness. It can be taken without regard to meals. CIPRO SHOULD NOT BE TAKEN BY CHILDREN, NURSING WOMEN, OR WOMEN. Although Cipro is usually well-tolerated, common side effects can include nausea and diarrhea. Contact your doctor if you experience any unusual symptoms while on this medication, such as joint pain or swelling, shortness of breath, wheezing, faintness, or hives. Augmentin Augmentin is a mixture of amoxicillin and clavulanate. Amoxicillin is a member of the penicillin family. It covers the germs likely to cause ear, bronchial, and urinary infections better than plain penicillin. The addition of clavulanate allows it to cover staph infections of the skin, as well as resistant cases of ear and sinus infections. Your physician has chosen Augmentin for you because of the special nature of your situation. Augmentin is best taken with meals. Nausea after taking the medication is rare, but can occur. Diarrhea can occur, particularly in small children. Vaginal yeast infections, and oral thrush in infants are also common. Contact your physician if these problems occur. Allergy to penicillins is common. If you have had an allergic reaction to any drug of the penicillin family, you should never take any other penicillin. Notify your doctor at once if you develop hives, shortness of breath, swelling, or faintness. Please stick with a liquid diet tonight and tomorrow morning and then progress to a soft diet. He will want to stay away from spicy foods tomato foods for several days as these may irritate your throat. Then progressed her diet as tolerated with no pain. Gargle with salt water 1 ounce 3 times a day. You will need to do this for the next 4 days. Oral Narcotic Medication You have been given a [employer] dispense pack for pain control. This medication is a narcotic. It's best taken with food, as nausea can result if taken on an empty stomach. Don't operate machinery or drive within six hours of taking this medication. Do not combine this medicine with alcohol, or with any medication which can cause sedation (such as cold tablets or sleeping pills) unless you get permission from the physician. Narcotics tend to cause constipation. If possible, drink plenty of fluids and eat a diet high in fiber and fruits. FOLLOW-UP CARE: If you have been referred to a physician for follow-up care, call the physician s office for an appointment as you were instructed or within the next two days. If you experience worsening or a significant change in your symptoms, notify the physician immediately or return to the Emergency Department at any time for re-evaluation. Prescriptions: Amox Tr/Potassium Clavulanate [Augmentin 875-125 Tablet] 1 tab PO BID 10 Days tablet Forms: Elevated Blood Pressure, Smoking Cessation Education Referrals: MONTY BETHEA MD [ACTIVE STAFF] - Follow up as needed
[2018-03-02 21:49] LABS: ABSOLUTE BASOPHILS # (AUTO) 0.1 10^3/uL (0.0-0.2); ABSOLUTE EOSINOPHILS # (AUTO) 0.1 10^3/uL (0.0-0.6); ABSOLUTE NEUT (AUTO) 10.3 10^3/uL (1.7-8.2); BASOPHILS % (AUTO) 0.5 % (0-2); EOSINOPHILS % (AUTO) 0.7 % (0-6); HEMATOCRIT 47.3 % (37.9-51.0); HEMOGLOBIN 15.3 g/dL (13.5-17.0); LYMPHOCYTES % (AUTO) 15.1 % (13-45); MEAN CORPUSCULAR HEMOGLOBIN 23.9 pg (27.0-33.4); MEAN CORPUSCULAR HGB CONC 32.2 g/dL (32.0-36.0); MEAN CORPUSCULAR VOLUME 74 fl (80-97); MONOCYTES % (AUTO) 7.5 % (3-13); PLATELET COUNT 289 10^3/uL (150-450); RED BLOOD COUNT 6.38 10^6/uL (4.35-5.55); RED CELL DISTRIBUTION WIDTH 14.8 % (11.5-14.0); SEGMENTED NEUTROPHILS % (AUTO) 76.2 % (42-78); TOTAL CELLS COUNTED % (AUTO) 100 %; WHITE BLOOD COUNT 13.6 10^3/uL (4.0-10.5)
[2018-03-02 22:07] LABS: ALANINE AMINOTRANSFERASE 25 U/L (21-72); ALBUMIN 4.3 g/dL (3.5-5.0); ALKALINE PHOSPHATASE 65 U/L (38-126); ANION GAP 12 (5-19); ASPARTATE AMINO TRANSFERASE 18 U/L (17-59); BILIRUBIN,DIRECT 0.2 mg/dL (0.0-0.4); BILIRUBIN,TOTAL 0.6 mg/dL (0.2-1.3); BLOOD UREA NITROGEN 12 mg/dL (7-20); CALCIUM 9.7 mg/dL (8.4-10.2); CARBON DIOXIDE 27 mmol/L (22-30); CHLORIDE 103 mmol/L (98-107); GLUCOSE 100 mg/dL (75-110); POTASSIUM 4.6 mmol/L (3.6-5.0); SODIUM 141.9 mmol/L (137-145); TOTAL PROTEIN 7.2 g/dL (6.3-8.2)
--- NOTE | 2018-03-02 22:49 | RADIOLOGY REPORT (SQ) ---
CT NECK CHEST WITH IV CONTRAST HISTORY: Sore throat. Difficulty swallowing. COMPARISON: None. TECHNIQUE: CT scan of the neck with IV contrast. This exam was performed according to our departmental dose-optimization program, which includes automated exposure control, adjustment of the mA and/or kV according to patient size and/or use of iterative reconstruction technique. FINDINGS: Approximately 1.4 x 1.3 x 1.5 cm rim-enhancing hypodense collection in the right palatine tonsil with surrounding edema. Mildly prominent neck lymph nodes, likely reactive. Adenoid and lingual tonsils are unremarkable. Parotid, submandibular and thyroid glands are normal. Paranasal sinuses and mastoid air cells are clear. Vascular structures are patent. IMPRESSION: 1.5 cm right-sided peritonsillar abscess/phlegmonous collection with surrounding inflammatory changes.
[2018-03-02] MEDS ORDERED: LIDOCAINE 2% INJ (20 MG/ML) 20 ML MDV INJ ONE (23:28)
[2018-03-02] MEDS ORDERED: MORPHINE SULFATE 10 MG/ML INJ IV ONE (23:31)
[2018-03-02] MEDS ORDERED: LORAZEPAM INJ 2 MG/1 ML VIAL IV ONE (23:31)
[2018-03-02] MEDS ORDERED: BENZOCAINE 20% AEROSOL SPRAY 60 GM TP ONE (23:31)
[2018-03-02] MEDS ORDERED: BENZOCAINE 20% AEROSOL SPRAY 60 GM ONE (23:47)
[2018-03-03] MEDS ORDERED: AMOXICILLIN TR/POT CLAVULANATE 500-125 MG TAB PO ONE (00:55)
[2018-03-03] MEDS ORDERED: HYDROCODONE/ACETAMINOPHEN 5-325 MG (6 TAB/ER DISP) PO PRN (01:03)
[2018-03-03 01:28] VITALS: BP 133/73
== END 2018-03-03 01:28 | disposition home or self-care (01) ==
LOC: ER 20:13
DX: J36 Peritonsillar abscess (principal); H60.501 Unspecified acute noninfective otitis externa, right ear; F17.210 Nicotine dependence, cigarettes, uncomplicated; I10 Essential (primary) hypertension; E11.9 Type 2 diabetes mellitus without complications; Z88.6 Allergy status to analgesic agent
CPT/HCPCS: 99406; 99284; 96374; 96375; 36415; 87070; 87880; 85025; 86308; 80053; 70491; 42700; A9270 ×3; J3490 ×2; J2270; J2060; J1100

== ENCOUNTER 2020-03-09 12:48 | Emergency (ER) | payer MEDICARE, MEDICAID ==
[2020-03-09] MEDS ORDERED: HYDROCODONE/ACETAMINOPHEN 5-325 MG TABLET PO ONE (13:19)
--- NOTE | 2020-03-09 13:20 | ER Document Report ---
ED Medical Screen (RME) - General Chief Complaint: Abscess Stated Complaint: ABSCESS Time Seen by Provider: 03/09/20 13:17 Mode of Arrival: Ambulatory Information source: Patient Notes: HPI; 45-year-old male presents to the emergency room with a questionable insect bite to his pelvic region. States he noticed some swelling on Tuesday thought was a boil states it started draining green discharge last night. States there is now a hole from where it has been draining. Denies any trauma or injury. Thinks he may have been bitten by something. But does not recall being bitten by anything. He denies any fevers, no urinary symptoms. No nausea, no vomiting, no medications at home for pain. PE: Alert and oriented x3. Mild distress noted. Lungs: Clear to auscultation without rales, rhonchi, wheezes. Heart: Regular rate rhythm without murmurs, rubs, gallops. Unable to assess area in triage. I have greeted and performed a rapid initial assessment of this patient. A comprehensive ED assessment and evaluation of the patient, analysis of test results and completion of the medical decision making process will be conducted by additional ED providers. I have specifically instructed the patient or family members with the patient to immediately return to any nursing staff should anything change in the patient's condition or with their chief complaint. TRAVEL OUTSIDE OF THE [place] IN LAST 30 DAYS: No - Related Data Allergies/Adverse Reactions: cyclobenzaprine HCl [From Flexeril] Allergy (Verified 06/10/17 16:46) ibuprofen [From Motrin] Allergy (Verified 06/10/17 16:46) tramadol [Tramadol] Allergy (Verified 06/10/17 16:46) trazodone [Trazodone] Allergy (Verified 06/10/17 16:46) Past Medical History - Past Medical History Cardiac Medical History: Reports: Hx Hypertension Pulmonary Medical History: Reports: Hx Asthma Neurological Medical History: Reports: Hx Migraine, Hx Seizures - 2001 Endocrine Medical History: Reports: Hx Diabetes Mellitus Type 2 Renal/ Medical History: Denies: Hx Peritoneal Dialysis Psychiatric Medical History: Reports: Hx Bipolar Disorder, Hx Schizophrenia Past Surgical History: Reports: Other - Cyst removed from the ear - Immunizations Immunizations up to date: Yes Hx Diphtheria, Pertussis, Tetanus Vaccination: Yes Physical Exam - Vital signs Vitals: Temp Pulse Resp BP Pulse Ox 98.4 F 85 16 130/88 H 98 03/09/20 12:55 03/09/20 12:55 03/09/20 12:55 03/09/20 12:55 03/09/20 12:55 Course - Vital Signs Vital signs: Temp Pulse Resp BP Pulse Ox 98.4 F 85 16 130/88 H 98 03/09/20 12:55 03/09/20 12:55 03/09/20 12:55 03/09/20 12:55 03/09/20 12:55
[2020-03-09] MEDS ORDERED: DOXYCYCLINE HYCLATE 100 MG TABLET PO ONE (14:20)
--- NOTE | 2020-03-09 14:29 | ER Document Report ---
ED Skin Rash/Insect Bite/Abscs - General Chief Complaint: Insect Bite Stated Complaint: ABSCESS Time Seen by Provider: 03/09/20 13:17 Mode of Arrival: Ambulatory Notes: CHIEF COMPLAINT: Groin abscess for 6 days HPI: 45-year-old male with prior history of skin abscesses presenting for tender swollen area that has been draining in the groin at the base of the penile shaft for the last week. States it did seem to come to ahead yesterday and did seem to begin to drain. Reports pain and discomfort to the area. No fever. No difficulty with urination ROS: See HPI - all other systems were reviewed and are otherwise negative Constitutional: no fever GI: no vomiting, no diarrhea, no abdominal pain : no dysuria Integumentary: + rash Allergy: no hives MEDICATIONS: I agree with the patient medications as charted by the RN. ALLERGIES: I agree with the allergies as charted by the RN. PAST MEDICAL HISTORY/PAST SURGICAL HISTORY: Reviewed and agree as charted by RN. SOCIAL HISTORY: Reviewed and agree as charted by RN. FAMILY HISTORY: No significant familial comorbid conditions directly related to patient complaint EXAM: Reviewed vital signs as charted by RN. CONSTITUTIONAL: Alert and oriented and responds appropriately to questions. Well-appearing; well-nourished HEAD: Normocephalic; atraumatic EYES: Conjunctivae clear, sclerae non-icteric ENT: normal nose; no rhinorrhea; moist mucous membranes NECK: Supple without meningismus CARD: symmetric distal pulses RESP: Normal chest excursion without splinting or tachypnea ABD/GI: Normal bowel sounds; non-distended; soft, non-tender, no rebound, no guarding; no palpable organomegaly or masses. : Normal male external genitalia. There is a granulating lesion on the dorsal aspect at the base of the penile shaft not on the shaft directly. It measures approximately 2 cm diameter. No fluctuant areas. No visible discharge. No surrounding cellulitic change. BACK: The back appears normal EXT: Normal ROM in all joints; no cyanosis, no effusions, no edema SKIN: Normal color for age and race; warm; dry; good turgor NEURO: Moves all extremities equally; Motor and sensory function intact PSYCH: The patient's mood and manner are appropriate. Grooming and personal hygiene are appropriate. MDM: 45-year-old male history of skin abscesses with an abscess at the base of the penile shaft not directly on the shaft. No fluctuant areas. Appears to have already drained. Given the location will place patient on a course of antibiotics for MRSA coverage. Will nursing draw an RPR given the location. Patient states he is up-to-date on his tetanus vaccination. TRAVEL OUTSIDE OF THE [place] IN LAST 30 DAYS: No - Related Data Allergies/Adverse Reactions: cyclobenzaprine HCl [From Flexeril] Allergy (Verified 06/10/17 16:46) ibuprofen [From Motrin] Allergy (Verified 06/10/17 16:46) tramadol [Tramadol] Allergy (Verified 06/10/17 16:46) trazodone [Trazodone] Allergy (Verified 06/10/17 16:46) Past Medical History - General Information source: Patient - Social History Smoking Status: Unknown if Ever Smoked Family History: Arthritis, CAD, CVA, DM, Hyperlipidemia, Hypertension. denies: COPD, Malignancy, Thyroid Disfunction - Past Medical History Cardiac Medical History: Reports: Hx Hypertension Pulmonary Medical History: Reports: Hx Asthma Neurological Medical History: Reports: Hx Migraine, Hx Seizures - 2001 Endocrine Medical History: Reports: Hx Diabetes Mellitus Type 2 Renal/ Medical History: Denies: Hx Peritoneal Dialysis Psychiatric Medical History: Reports: Hx Bipolar Disorder, Hx Schizophrenia Past Surgical History: Reports: Other - Cyst removed from the ear - Immunizations Immunizations up to date: Yes Hx Diphtheria, Pertussis, Tetanus Vaccination: Yes Physical Exam - Vital signs Vitals: Temp Pulse Resp BP Pulse Ox 98.4 F 85 16 130/88 H 98 03/09/20 12:55 03/09/20 12:55 03/09/20 12:55 03/09/20 12:55 03/09/20 12:55 Course - Vital Signs Vital signs: Temp Pulse Resp BP Pulse Ox 98.4 F 85 16 130/88 H 98 03/09/20 12:55 03/09/20 12:55 03/09/20 12:55 03/09/20 12:55 03/09/20 12:55 Discharge - Discharge Clinical Impression: Abscess, groin Condition: Stable Disposition: HOME, SELF-CARE Instructions: Abscess ([facility]) Additional Instructions: Continue to apply warm compresses to the groin region. Take the antibiotics as prescribed. Follow-up with your primary care provider for reevaluation of symptoms call for appointment. Prescriptions: Hydrocodone/Acetaminophen [[place] 5-325 mg Tablet] 1 tab PO Q6HP PRN #10 tablet PRN Reason: Doxycycline Monohydrate 100 mg PO BID #28 capsule
[2020-03-09 15:16] VITALS: BP 142/91
== END 2020-03-09 15:16 | disposition home or self-care (01) ==
LOC: ER 12:48
DX: L02.214 Cutaneous abscess of groin (principal); I10 Essential (primary) hypertension; E11.9 Type 2 diabetes mellitus without complications
CPT/HCPCS: 99283; 36415; 86592; A9270 ×2

== ENCOUNTER 2020-04-26 15:52 | Emergency (ER) | payer OTHER, MEDICARE, MEDICAID ==
[2020-04-26 16:31] VITALS: BP 145/82
[2020-04-26] MEDS ORDERED: METHOCARBAMOL 750 MG TABLET PO ONE (16:49)
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
== END 2020-04-26 18:55 | disposition home or self-care (01) ==
LOC: ER 15:52
DX: M54.2 Cervicalgia (principal); V43.62XA Car passenger injured in collision with other type car in traffic accident, initial encounter; F17.200 Nicotine dependence, unspecified, uncomplicated; I10 Essential (primary) hypertension; J45.909 Unspecified asthma, uncomplicated; E11.9 Type 2 diabetes mellitus without complications
CPT/HCPCS: 72125; 99284

== ENCOUNTER → 2020-05-03 | Outpatient (CLI) | payer OTHER, MEDICARE, MEDICAID ==
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
== END ==
LOC: RAD 14:43
PROVIDERS: ATTEND Nurse Practitioner Family
DX: M54.6 Pain in thoracic spine (principal); M54.2 Cervicalgia; M54.5 Low back pain; M79.651 Pain in right thigh
CPT/HCPCS: 72050; 72070; 72110